=== PATIENT | female | born 1970 | race Caucasian/White ===

== ENCOUNTER 2023-04-30 16:53 | Outpatient (OUT) | payer MEDICAID, SELFPAY ==
--- NOTE | 2023-04-30 17:12 | XR_ITS ---
[facility] [place] [facility] [id number] Patient Name: PHILIP ARENAS MRN: [id number] date: 1970 Sex: F Assigned Patient Location: [facility] Current Patient Location: [facility] Accession/Order Number: [id number] Exam Date: 04/30/2023 17:08 Report Date: 04/30/2023 17:20 At the request of: ZULLY DEL TORO Procedure: XR wrist LT min 3V EXAM: XR wrist LT min 3V HISTORY: Pain left wrist, M25.532 after an injury. COMPARISON: None. TECHNIQUE: 3 views of the left wrist were obtained. FINDINGS: There is no apparent acute fracture or dislocation. Ulnar minus variance is present. The joint spaces throughout the wrist are intact. No abnormal soft tissue calcifications are present. XR/XR wrist LT min 3V IMPRESSION: No acute fracture or dislocation. No significant osseous abnormality is identified. Electronically authenticated by: ANDREW BUSCH Date: 04/30/2023 17:20
== END 2023-04-30 16:54 | disposition home or self-care (01) ==
LOC: RAD 16:57
PROVIDERS: PCP Family Medicine; Visit Provider Family Medicine
DX: M25.532 Pain in left wrist (principal)
CPT/HCPCS: 73110